=== PATIENT | female | born 1950 | race Caucasian/White ===

== ENCOUNTER 2016-12-06 13:38 | Day surgery (SDC) | payer OTHER ==
[~2016-12-06] VITALS: Ht 172.7 cm; Wt 68.2 kg
[2016-12-06] MEDS ORDERED: ASPI-664 PO (14:19)
[2016-12-06] MEDS ORDERED: DEPRESSION MED (14:19)
[2016-12-06 14:22] VITALS: Ht 172.7 cm; Wt 68.2 kg
[2016-12-06] MEDS ORDERED: LIDOCAINE 4% SOLUTION 50 ML BTL ONE (14:46)
[2016-12-06 14:51] VITALS: BP 155/83; PULSE 59; RESP 21
--- NOTE | 2016-12-06 15:17 | OPR ---
Date/Time of Note Date/Time of Note DATE: 12/06/16 TIME: 14:51 Operative Report Preoperative Diagnosis ABDOMINAL PAIN,DIARRHEA,WT LOSS Postoperative Diagnosis R/ SORTO,S GASTRITIS Operation/Procedure Performed EGD BIOPSY Surgeon: DAVID CRAWFORD MD Anesthesia: other (MODERATE SEDATION) Estimated Blood Loss: minimal (1CC) Specimens YES Grafts/Implants NONE Complications: None DAVID CRAWFORD MD Dec 06, 2016 15:14
[2016-12-06] MEDS ORDERED: MIDAZOLAM 1 MG/ML 2 ML INJ ONE ×2 (15:21)
[2016-12-06] MEDS ORDERED: FENTAnyl 50 MCG/ML VIAL ONE (15:21)
[2016-12-06 15:43] VITALS: BP 159/89; PULSE 56; RESP 12
--- NOTE | 2016-12-11 14:37 | GILP ---
DATE OF PROCEDURE: 12/06/2016 PREOPERATIVE DIAGNOSIS: Weight loss, nausea, abdominal pain, and diarrhea. PROCEDURE PERFORMED: Procedure done EGD biopsy and biopsy. POSTOP DIAGNOSIS: Mild esophagitis, mild gastritis. Most of the gastritis seems to be chronic in the antral area. DESCRIPTION OF PROCEDURE: The patient was put in left lateral decubitus position. After obtaining informed consent, posterior pharynx was anesthetized with 4 percent xylocaine after sedation. Advanced an Olympus video upper endoscope into the esophagus, stomach and duodenum. Examination of the esophagus showed mild esophagitis at the GE junction, small hiatus hernia. The stomach, there was chronic gastritis especially in the antrum and body and the fundus was unremarkable. Retroflexion showed small hiatus hernia. A biopsy was done in the antrum and also in the duodenum, and then the scope was withdrawn. Duodenum unremarkable. PLAN: Await for biopsy report. Meanwhile, for her diarrhea, I would recommend patient to have further workup including colonoscopy if necessary and small bowel series. Dictated By: Rosmery Soto MD /timmy/lm /Document#: [id number] ; Dr. Montano
== END 2016-12-06 17:22 | disposition home or self-care (01) ==
LOC: GIL 13:38
PROVIDERS: ATTEND Internal Medicine
DX: K29.30 Chronic superficial gastritis without bleeding (principal); B96.81 Helicobacter pylori [H. pylori] as the cause of diseases classified elsewhere; K20.9 Esophagitis, unspecified; R19.7 Diarrhea, unspecified; R63.4 Abnormal weight loss; Z68.22 Body mass index [BMI] 22.0-22.9, adult
CPT/HCPCS: 43239; 88305; 88312; 88313; J2250; J3010; Z7610